=== PATIENT | female | born 1970 | race Caucasian/White ===

== ENCOUNTER → 2017-01-15 | Outpatient (CLI) | payer BC ==
--- NOTE | 2017-01-17 13:35 | MAMMOGRAPHY REPORT ---
ULTRASOUND OF BOTH BREASTS: 01/15/2017 CLINICAL HISTORY: 46-year-old woman presents for follow-up of benign-appearing cystic and solid vers us cystic masses throughout the left breast. COMPARISON: Comparison is made to exams dated: 07/17/2016 ultrasound, 07/05/2016 mammogram, 12/06/2014 mammogram - [facility], 03/06/2012 mammogram, 03/25/2012 [facility] 08/[facility]/2013 mammogram - [facility]. FINDINGS: Real-time high-resolution sonographic evaluation was performed in both breasts with atten tion to the left 2:30, 8:00, 11:00 and right 1:00, 6:00, 9:00, 10:00 and 11:00 axes, to reevaluate t he benign-appearing solid versus cystic masses seen on previous complete breast ultrasound. In the 2:30 left breast, 1 cm from the nipple, there is a rounded circumscribed hypoechoic solid luis angel jaspal cystic mass measuring 4.1 x 3.6 x 3.8 mm. Previous measurements were 4.5 x 3.9 x 4.7 mm and giv en slight differences in technique this appears slightly smaller in size. Also seen in the 2:30 lef t breast approximately 2 cm from the nipple, is a lobulated parallel hypoechoic solid versus cystic mass measuring 5.5 x 3.0 x 4.5 mm. This was not identified on the prior exam and may represent anot her complicated cyst. Also incidentally seen in the adjacent 2:00 left breast, 3 cm from the nipple is another hypoechoic cystic-appearing round mass measuring 3.6 x 3.0 x 3.5 mm. This was not ident ified on the prior exam and could represent another complicated cyst. In the 8:00 left breast, 4 cm from the nipple, there is a round circumscribed mixed echogenicity hypoechoic cystic-appearing mass measuring 4.0 x 3.6 x 3.8 mm. Previous measurements were 4.7 x 3.8 x 4.5 mm and this has not signi ficantly changed in size compared to the prior exam. In the 11:00 left breast, 4 cm from the nipple , there are clustered nodular hypoechoic areas. One measures 3.4 x 2.6 x 4.3 mm and the adjacent hy poechoic tissue measures approximately 5.7 x 6.5 x 2.3 mm. This most likely represent focal fibrocy stic change and/or some fibrosis. Prior approximate measurements were 4.3 x 7.5 x 3.0 mm and visual ly, this does not appear significantly changed. Within the right 1:00 breast, 2 cm from the nipple, there is a rounded circumscribed hypoechoic cyst ic-appearing mass measuring 4.5 x 4.7 x 4.6 mm. There is a large adjacent benign anechoic cyst as w ell as another adjacent to teardrop-shaped hypoechoic solid-appearing mass that measures approximate ly 4.6 x 5.1 mm. This teardrop-shaped portion was previously measured at 5.4 x 5.5 mm and does not appear significantly changed in size. A small cyst cluster is again identified in the 6:00 right br east, 1 cm from the nipple, measuring 7.6 x 3.8 x 4.6 mm. This previously measured 6.8 x 4.0 x 3.5 mm but appears more cystic/anechoic in nature compared to the prior exam. This most likely represen ts a small cyst cluster. In the 9:00 right breast, 3 cm from the nipple, there is a rounded circums cribed hypoechoic solid versus cystic mass without evidence of posterior acoustic enhancement or sha dowing. It measures 3.6 x 3.0 x 4.4 mm, previous measurements were 4.2 x 3.0 mm and this has not si gnificantly changed in size. Isoechoic to slightly hypoechoic solid versus cystic mass in the 10:00 right breast, 5 cm from the nipple, measures 3.8 x 3.6 x 3.3 mm, previously measured 4.3 x 4.1 x 4. 8 mm. The interval decrease in size confirms a fluctuating cyst. A lobulated hypoechoic solid-appe aring mass in the 10:00 right breast approximately 4 cm from the nipple measures 6.4 mm in maximum d imension. This was not previously seen. In the 11:00 right breast, 3 cm from the nipple, there is an oval parallel circumscribed hypoechoic solid versus cystic masses measuring 4.7 x 2.7 x 5.0 mm. This previously measured 6.0 x 2.6 x 5.7 mm. at the same location but deeper within the breast, the re is a rounded hypoechoic solid versus cystic mass measuring 4.4 x 3.6 x 3.8 mm. This previously m easured 4.3 x 3.5 mm. IMPRESSION: ACR-BI-RADS CATEGORY 3: PROBABLY BENIGN - FOLLOW-UP RECOMMENDED All of the suspected benign cysts, complicated cysts and benign-appearing solid masses in each breas t are stable in size to slightly decreased comparing to the prior ultrasound. A few similar appeari ng benign-appearing solid versus cystic masses are currently identified which were not previously se en but most likely represent additional benign cysts and solid masses. Another short interval follo w-up targeted ultrasound in each breast, again with attention to the left 2:00, 2:30, 8:00, 11:00 an d right 1:00, 6:00, 9:00, 10:00 and 11:00 axes is recommended to ensure longer stability. Bilateral screening mammography will also be due at that time. These results and recommendations were discussed with the patient at the time of the exam. Alis Stokes M.D. ay/:01/16/2017 21:57:52 Program Advisor: Joyce DOYLE)(Ana), [facility] letter sent: Follow Up Recommended 3 BI-RADS Code: ACR-BI-RADS Category 3: Probably Benign
== END | disposition home or self-care (01) ==
LOC: C.MAMM 07:56
PROVIDERS: ATTEND Nurse Practitioner Family
DX: Z09 Encounter for follow-up examination after completed treatment for conditions other than malignant neoplasm (principal)

== ENCOUNTER → 2017-07-18 | Outpatient (CLI) | payer BC ==
--- NOTE | 2017-07-19 14:54 | MAMMOGRAPHY REPORT ---
BILATERAL DIGITAL DIAGNOSTIC MAMMOGRAM TOMOSYNTHESIS WITH CAD AND TARGETED BILATERAL ULTRASOUND: 07/18 CLINICAL HISTORY: Short interval follow-up of bilateral breast masses. The patient denies any curren t complaints. TECHNIQUE: Breast tomosynthesis in addition to standard 2D mammography was performed. Current study was also evaluated with a Computer Aided Detection (CAD) system. Bilateral CC and MLO 2-D and tomosy nthesis images were obtained. COMPARISON: Comparison is made to exams dated: 01/15/2017 ultrasound, 07/17/2016 ultrasound, 07/05/2016 mammogram, 12/06/2014 mammogram, 12/06/2014 ultrasound, and 11/24/2014 mammogram - [facility]. BREAST COMPOSITION: The tissue of both breasts is heterogeneously dense, which may obscure small mas ses. FINDINGS: There are no suspicious masses, calcifications, or areas of architectural distortion noted in either breast mammographically. There has been no significant interval change compared to prior exams. Fluctuating round/oval circumscribed benign-appearing masses are noted bilaterally, which are considered benign given the multiplicity and bilaterality and are consistent with cysts. A biopsy m arker clip is again noted in the left 12:00 breast. Targeted ultrasound was performed of the area of the previously seen masses. In the left breast at 2 :30, 1 cm from the nipple, again noted is a round circumscribed hypoechoic 4 x 3 x 4 mm mass, stable dating back to at least the June 2016 exam. In the left breast at 2:30, 2 cm from the nipple, t here is an oval hypoechoic circumscribed cystic-appearing mass which measures 6 x 5 mm, also unchange d. In the left breast at 2:00, 2 cm to the nipple, there is an oval anechoic benign simple cyst. In the left breast at 8:00, 4 cm from the nipple, there is an oval anechoic circumscribed benign simple cyst measuring 5 x 5 mm, stable dating back to the June 2016 exam. In the left breast at 11:00 , 4 cm from the nipple, there is a circumscribed hypoechoic cystic-appearing 3 x 3 mm mass and an adj acent 4 x 5 mm adjacent cystic-appearing mass which appears decreased, confirming benignity. In the right breast at 1:00, 2 cm from the nipple, again noted is a round circumscribed hypoechoic 4 x 5 x 5 mm mass and an adjacent hypoechoic circumscribed 5 x 5 x 5 mm mass stable dating back to the June 2016 exam. In the right 6:00 breast, there is a benign cyst cluster which measures 7 x 7 x 4 mm, and is also unchanged. In the right 10:00 breast, 5 cm from the nipple, there is a circumscri bed isoechoic 4 x 4 mm mass which is smaller dating back to the June 2016 exam and is therefore considered benign. In the right breast at 10:00, 4 cm from the nipple, there is a circumscribed hypo echoic 4 x 5 x 5 mm mass which appears decreased compared to the December 2016 exam and is therefore con sidered benign. An anechoic benign cyst measuring 6 mm is noted in the right 11:00 breast, 4 cm from the nipple. Additionally, an anechoic circumscribed 7 mm benign simple cyst is also noted in the ri ght 11:00 breast, 4 cm from the nipple. Given the benign morphology of the masses including circumscribed margins as well as the multiplicity and bilaterality and stability, the masses are considered benign and likely represent simple and com plicated cysts. IMPRESSION: ACR BI-RADS CATEGORY 2: BENIGN, TARGETED ULTRASOUND ACR BI-RADS CATEGORY 2: BENIGN No significant interval change in circumscribed benign-appearing masses seen bilaterally. Findings a re considered benign given the morphology and stability as well as multiplicity and bilaterality and felt to represent cysts. There is no mammographic or targeted sonographic evidence of malignancy. A 1 year screening mammogram is recommended. The patient has been verbally notified of the results. Approximately 10% of breast cancers are not detected with mammography. A negative mammographic report should not delay biopsy if a clinically suggestive mass is present. Jadyn Pa M.D. /:07/18/2017 16:17:45 Mems Engineer: Sophia Arreguin, [facility] letter sent: Normal 1/2 BI-RADS Code: ACR BI-RADS Category 2: Benign Ultrasound BI-RADS: ACR BI-RADS Category 2: Benign
== END | disposition home or self-care (01) ==
LOC: C.MAMM 07:55
PROVIDERS: ATTEND Nurse Practitioner Family
DX: N63 Unspecified lump in breast (principal)